=== PATIENT | female | born 1980 | race Caucasian/White ===

== ENCOUNTER 2021-04-13 18:27 | Emergency (ER) | payer OTHER ==
[~2021-04-13] VITALS: Ht 157.5 cm; Wt 61.0 kg
[~2021-04-13 18:27] MED LIST: NOCURR
[2021-04-13 19:30] VITALS: BP 125/70
== END 2021-04-13 20:26 | disposition home or self-care (01) ==
LOC: EMS 18:29
DX: F41.9 Anxiety disorder, unspecified (principal); R00.2 Palpitations; F17.210 Nicotine dependence, cigarettes, uncomplicated
CPT/HCPCS: 93005; 99283